=== PATIENT | male | born 1965 | race Caucasian/White ===

== ENCOUNTER 2018-01-19 17:31 | Inpatient (IN) | payer SELFPAY ==
[~2018-01-19] VITALS: Ht 165.1 cm; Wt 84.0 kg
[2018-01-19] MEDS ORDERED: NITROGLYCERIN OINT 1GM/INCH UDPKT TD ONE (18:00)
[2018-01-19] MEDS ORDERED: ASPIRIN 81MG TABLET PO ONE (18:00)
[2018-01-19 18:29] LABS: CHLORIDE 107 mEq/L (98-107)
[2018-01-19 18:33] LABS: BASOPHILS % 0.3 % (0.0-2.0); EOSINOPHILS % 0.3 % (0.0-5.0); ETHANOL BLOOD < 10 mg/dL; HEMATOCRIT. 49.7 % (42.0-52.0); HEMOGLOBIN. 16.6 g/dL (14.0-18.0); MEAN CORPUSCULAR HEMOGLOBIN 27.3 pg (28.0-32.0); MEAN CORPUSCULAR VOLUME 81.8 fL (80.0-94.0); MEAN PLATELET VOLUME 8.2 fl (7.4-10.4); MONOCYTES % 5.5 % (2.0-8.0); NEUTROPHILS % 80.9 % (40.0-76.0); PLATELET 248 x1000/uL (130-400); RED BLOOD CELL COUNT 6.07 mill/uL (4.7-6.1); RED CELL DISTRIBUTION WIDTH 13.8 % (11.6-14.6)
[2018-01-19 18:36] LABS: D-DIMER 0.39 mg/L FEU (<0.50); INR 1.1; PARTIAL THROMBOPLASTIN TIME 23.8 sec (23.4-31.0)
[2018-01-19] MEDS ORDERED: ENOXAPARIN 80MG/0.8ML SYR SUBCUT ONE (20:30)
[2018-01-19 22:00] VITALS: BP 148/90
[2018-01-19 22:24] VITALS: BP 159/89
[2018-01-20] VITALS (11 sets, daily range): BP systolic 124–165; BP diastolic 82–99
[2018-01-20] MEDS ORDERED: MORPHINE SULFATE 4 MG/ML CPJ (NOT FOR IM USE) IV PRN ×2 (00:30→12:30)
[2018-01-20] MEDS: METOPROLOL TARTRATE 25MG TABLET PO SCH ×3 (00:57→16:23)
[2018-01-20] MEDS ORDERED: CLONIDINE 0.1MG TABLET PO PRN (03:30)
[2018-01-20] MEDS: NITROGLYCERIN OINT 1GM/INCH UDPKT TD SCH ×3 (05:57→21:30)
[2018-01-20 07:47] LABS: CHLORIDE 106 mEq/L (98-107)
[2018-01-20 07:50] LABS: BASOPHILS % 0.3 % (0.0-2.0); EOSINOPHILS % 0.2 % (0.0-5.0); HEMATOCRIT. 45.2 % (42.0-52.0); LYMPHOCYTES % 14.5 % (20.0-50.0); MEAN CORPUSCULAR HEMOGLOBIN 27.1 pg (28.0-32.0); MEAN CORPUSCULAR VOLUME 81.5 fL (80.0-94.0); MEAN PLATELET VOLUME 8.5 fl (7.4-10.4); MONOCYTES % 8.6 % (2.0-8.0); NEUTROPHILS % 76.4 % (40.0-76.0); PLATELET 217 x1000/uL (130-400); RED BLOOD CELL COUNT 5.55 mill/uL (4.7-6.1); RED CELL DISTRIBUTION WIDTH 13.9 % (11.6-14.6)
[2018-01-20 07:55] LABS: LDL CHOLESTEROL 165 mg/dL (5-100)
[2018-01-20 07:57] LABS: HDL CHOLESTEROL 34 mg/dL (40-59)
[2018-01-20] MEDS ORDERED: ASPIRIN 325MG EC TABLET PO SCH (09:00)
[2018-01-20] MEDS ORDERED: ENOXAPARIN 40MG/0.4ML SYR SUBCUT SCH (09:00)
[2018-01-20] MEDS ORDERED: LIDOCAINE HCL 1% 20ML VIAL (Pyxis) INJ ONE (10:58)
[2018-01-20] MEDS ORDERED: IODIXANOL 320MG/ML 100 ML BOTTLE IV ONE ×2 (10:58→12:03)
[2018-01-20] MEDS ORDERED: FENTANYL CITRATE/PF 50MCG/ML 2ML VIAL ONE (11:13)
[2018-01-20] MEDS ORDERED: MIDAZOLAM HCL 2 MG/2 ML VIAL ONE (11:24)
[2018-01-20] MEDS ORDERED: PNEUMOCOCCAL 23-VAL P-SAC VAC 0.5 ML IM ONE (12:00)
[2018-01-20] MEDS ORDERED: IOHEXOL-300 100 ML BOTTLE ONE (12:01)
[2018-01-20] MEDS ORDERED: CLOPIDOGREL 75MG TABLET ONE (12:26)
[2018-01-20] MEDS ORDERED: CLOPIDOGREL 75MG TABLET PO NR (12:30)
[2018-01-20] MEDS ORDERED: ATROPINE SULFATE 1MG/10ML SYR IV PRN (12:30)
[2018-01-20] MEDS ORDERED: SODIUM CHLORIDE 0.45% 1,000 ML IV ONE (12:30)
[2018-01-20] MEDS ORDERED: ONDANSETRON HCL 4MG/2ML VIAL IV PRN (12:30)
[2018-01-20] MEDS ORDERED: ACETAMINOPHEN 325MG TABLET PO PRN (12:30)
[2018-01-20] MEDS ORDERED: ONDANSETRON 4MG ODT PO PRN (12:45)
[2018-01-20] MEDS ORDERED: NICARDIPINE 100MCG/ML 10ML VIAL (CATH LAB) IV ONE (13:37)
[2018-01-20] MEDS ORDERED: NITROGLYCERIN 50MCG/ML 10ML VIAL (CATH LAB) IV ONE (13:37)
[2018-01-20] MEDS ORDERED: HEPARIN SODIUM 1,000 UNIT/1ML VIAL IV ONE ×2 (14:54→15:07)
[2018-01-20] MEDS ORDERED: METOPROLOL TARTRATE 25MG TABLET PO SCH (16:15)
[2018-01-20] MEDS: LISINOPRIL 5MG TABLET PO SCH (16:24)
[2018-01-20] MEDS ORDERED: ATORVASTATIN CALCIUM 40MG TABLET PO SCH (21:00)
[2018-01-20] MEDS ORDERED: ENALAPRIL 2.5MG TABLET PO SCH (21:00)
[2018-01-20] MEDS: ATORVASTATIN CALCIUM 40MG TABLET PO SCH (21:30)
[2018-01-21] VITALS (12 sets, daily range): BP systolic 93–125; BP diastolic 64–85
[2018-01-21] MEDS: NITROGLYCERIN OINT 1GM/INCH UDPKT TD SCH (05:52)
[2018-01-21 06:55] LABS: BASOPHILS % 0.5 % (0.0-2.0); EOSINOPHILS % 0.4 % (0.0-5.0); HEMATOCRIT. 46.9 % (42.0-52.0); HEMOGLOBIN. 16.1 g/dL (14.0-18.0); LYMPHOCYTES % 16.2 % (20.0-50.0); MEAN CORPUSCULAR HEMOGLOBIN 27.9 pg (28.0-32.0); MEAN CORPUSCULAR VOLUME 81.3 fL (80.0-94.0); MEAN PLATELET VOLUME 8.4 fl (7.4-10.4); MONOCYTES % 10.5 % (2.0-8.0); NEUTROPHILS % 72.4 % (40.0-76.0); PLATELET 205 x1000/uL (130-400); RED BLOOD CELL COUNT 5.77 mill/uL (4.7-6.1); RED CELL DISTRIBUTION WIDTH 13.7 % (11.6-14.6)
[2018-01-21] MEDS: METOPROLOL TARTRATE 25MG TABLET PO SCH ×2 (08:12→21:00)
[2018-01-21] MEDS: ASPIRIN 325MG TABLET PO SCH (08:13)
[2018-01-21] MEDS: LISINOPRIL 5MG TABLET PO SCH ×2 (08:13→17:00)
[2018-01-21] MEDS: CLOPIDOGREL 75MG TABLET PO SCH (08:13)
[2018-01-21 08:37] LABS: CHLORIDE 105 mEq/L (98-107)
[2018-01-21 08:52] LABS: T4 FREE 0.87 ng/dL (0.76-1.46)
[2018-01-21] MEDS: ATORVASTATIN CALCIUM 40MG TABLET PO SCH (22:04)
[2018-01-22] VITALS: BP 102/64
[2018-01-22 02:00] VITALS: BP 97/66
[2018-01-22 04:00] VITALS: BP 96/60
[2018-01-22 06:00] VITALS: BP 114/71
[2018-01-22] MEDS: CLOPIDOGREL 75MG TABLET PO SCH (08:44)
[2018-01-22] MEDS: ASPIRIN 325MG TABLET PO SCH (08:44)
[2018-01-22] MEDS: LISINOPRIL 5MG TABLET PO SCH (08:45)
[2018-01-22] MEDS: METOPROLOL TARTRATE 25MG TABLET PO SCH (09:00)
[2018-01-22 10:00] VITALS: BP 104/64
[2018-01-22 11:25] VITALS: BP 118/85
== END 2018-01-22 12:20 | disposition home or self-care (01) | DRG 174 ==
LOC: ER 19:12 → 3WST 20:32 → EDBEDREQTM 20:35 → EDBEDREQ 20:35 → EDBEDREQSVC 20:35 → ENRESERV 20:39
PROVIDERS: ADMIT Internal Medicine; ATTEND Internal Medicine
PROC: 027034Z Dilation of Coronary Artery, One Artery with Drug-eluting Intraluminal Device, Percutaneous Approach (ICD-10-PCS; principal; 2018-01-20)
PROC: 4A023N7 Measurement of Cardiac Sampling and Pressure, Left Heart, Percutaneous Approach (ICD-10-PCS; 2018-01-20)
PROC: B2111ZZ Fluoroscopy of Multiple Coronary Arteries using Low Osmolar Contrast (ICD-10-PCS; 2018-01-20)
PROC: 02703ZZ Dilation of Coronary Artery, One Artery, Percutaneous Approach (ICD-10-PCS; 2018-01-20)
DX: I21.09 ST elevation (STEMI) myocardial infarction involving other coronary artery of anterior wall (principal); I10 Essential (primary) hypertension; E66.9 Obesity, unspecified; E78.5 Hyperlipidemia, unspecified; E78.00 Pure hypercholesterolemia, unspecified; I25.10 Atherosclerotic heart disease of native coronary artery without angina pectoris; Y92.69 Other specified industrial and construction area as the place of occurrence of the external cause; Y99.0 Civilian activity done for income or pay; Z91.14 Patient's other noncompliance with medication regimen; Z68.30 Body mass index [BMI] 30.0-30.9, adult; Z88.0 Allergy status to penicillin; Z88.2 Allergy status to sulfonamides
CPT/HCPCS: 36415; 71045; 80048; 80053; 80061; 82962; 83036; 83735; 83880; 84439; 84443; 84481; 84484; 85025; 85347; 85379; 85610; 85730; 92928; 93005; 93306; 93458; 96372; 99285; C1725; C1769; C1874; C1887; C1893; G0482; J1644; J1650; J2250; J3010; J3490; Q9967